=== PATIENT | male | born 1985 | race Caucasian/White ===

== ENCOUNTER 2022-12-21 11:57 | Emergency (ER) | payer MEDICAID ==
[2022-12-21] MEDS ORDERED: Lidocaine 1% 10 ML MDV INJECT ONE (12:41)
[2022-12-21 13:04] LABS: BASOPHILS ABSOLUTE AUTO 0.1 K/mm3 (0.0-0.2); BASOPHILS PERCENT AUTO 1.6 % (0.0-1.0); EOSINOPHILS ABSOLUTE AUTO 0.3 K/mm3 (0.0-0.4); EOSINOPHILS PERCENT AUTO 3.7 % (0.0-6.0); HEMATOCRIT 30.7 % (42.0-52.0); HEMOGLOBIN 11.2 gm/dl (14.0-18.0); IMMATURE GRAN ABSOLUTE AUTO 0.11 K/mm3 (0.00-0.05); IMMATURE GRAN PERCENT AUTO 1.3 % (0.0-0.4); LYMPHOCYTES ABSOLUTE AUTO 0.5 K/mm3 (1.0-4.8); LYMPHOCYTES PERCENT AUTO 5.6 % (24.0-44.0); MEAN CORPUSCULAR HEMOGLOBIN 35.8 pg (28.0-32.0); MEAN CORPUSCULAR HGB CONC 36.5 g/dl (32.0-36.0); MEAN CORPUSCULAR VOLUME 98.1 fl (83.0-99.0); MEAN PLATELET VOLUME 11.1 fl (9.4-12.4); MONOCYTES ABSOLUTE AUTO 1.4 K/mm3 (0.0-0.8); MONOCYTES PERCENT AUTO 17.1 % (0.0-8.0); NEUTROPHILS ABSOLUTE AUTO 5.9 K/mm3 (1.8-7.7); NEUTROPHILS PERCENT AUTO 70.7 % (41.0-71.0); PLATELET COUNT,PLT 112 K/mm3 (150-400); RED BLOOD CELL COUNT 3.13 M/mm3 (4.52-5.90); WHITE BLOOD CELL COUNT,WBC 8.36 K/mm3 (3.9-11.3)
[2022-12-21 13:39] LABS: A/G RATIO 0.5 (1-2); ALBUMIN 1.8 g/dl (3.4-5.0); BUN/CREATININE RATIO 15.5 (14-18); CALCIUM 8.2 mg/dL (8.5-10.1); EST CRCL DRUG DOSING (CG) 109.89 mL/min
[2022-12-21 13:45] LABS: CREATININE 1.1 mg/dL (0.7-1.3); PROTEIN TOTAL,TP 5.5 g/dl (6.4-8.2)
== END 2022-12-21 13:50 | disposition left against medical advice (07) ==
LOC: JD.ED 11:57
DX: K70.31 Alcoholic cirrhosis of liver with ascites (principal)
CPT/HCPCS: 36415; 80053; 82140; 85025; 99283; 99285; J3490

== ENCOUNTER 2022-12-27 19:54 | Inpatient (IN) | payer MEDICAID ==
[2022-12-27] MEDS ORDERED: Sodium Chloride 0.9% 10 ML Syringe FLUSH PRN (20:09)
[2022-12-27] MEDS ORDERED: Furosemide 40 MG/4 ML VIAL IVPUSH ONE (20:27)
[2022-12-27 20:36] LABS: BASOPHILS ABSOLUTE AUTO 0.1 K/mm3 (0.0-0.2); BASOPHILS PERCENT AUTO 1.2 % (0.0-1.0); EOSINOPHILS ABSOLUTE AUTO 0.7 K/mm3 (0.0-0.4); EOSINOPHILS PERCENT AUTO 6.5 % (0.0-6.0); HEMATOCRIT 29.7 % (42.0-52.0); HEMOGLOBIN 10.8 gm/dl (14.0-18.0); IMMATURE GRAN ABSOLUTE AUTO 0.26 K/mm3 (0.00-0.05); IMMATURE GRAN PERCENT AUTO 2.4 % (0.0-0.4); LYMPHOCYTES ABSOLUTE AUTO 0.6 K/mm3 (1.0-4.8); MEAN CORPUSCULAR HEMOGLOBIN 36.5 pg (28.0-32.0); MEAN CORPUSCULAR HGB CONC 36.4 g/dl (32.0-36.0); MEAN CORPUSCULAR VOLUME 100.3 fl (83.0-99.0); MEAN PLATELET VOLUME 10.6 fl (9.4-12.4); MONOCYTES ABSOLUTE AUTO 1.6 K/mm3 (0.0-0.8); NEUTROPHILS ABSOLUTE AUTO 7.8 K/mm3 (1.8-7.7); NEUTROPHILS PERCENT AUTO 70.9 % (41.0-71.0); PLATELET COUNT,PLT 131 K/mm3 (150-400); RED BLOOD CELL COUNT 2.96 M/mm3 (4.52-5.90); WHITE BLOOD CELL COUNT,WBC 11.04 K/mm3 (3.9-11.3)
[2022-12-27 21:08] LABS: A/G RATIO 0.4 (1-2); ALBUMIN 1.7 g/dl (3.4-5.0); ANION GAP 16.3 (5-15); BILIRUBIN TOTAL 17.6 mg/dL (0.2-1.0); C-REACTIVE PROTEIN 2.6 mg/dL (<1.0); CALCIUM 7.9 mg/dL (8.5-10.1); EST CRCL DRUG DOSING (CG) 120.88 mL/min
[2022-12-27 21:09] LABS: LACTIC ACID 2.1 mmol/L (0.4-2.0)
[2022-12-27 21:11] LABS: POTASSIUM,K 3.3 mEq/L (3.5-5.1)
[2022-12-27 21:12] LABS: PROTEIN TOTAL,TP 5.8 g/dl (6.4-8.2)
[2022-12-27 21:19] LABS: SLIDE REVIEW ABNORMAL SMEAR
[2022-12-27 21:23] LABS: APPEARANCE,URINE CLEAR (Clear); BILIRUBIN,URINE 3+ (Negative); COLOR,URINE DARK YELLOW (Yellow); GLUCOSE,URINE NEGATIVE (Negative); KETONES,URINE NEGATIVE (Negative); LEUKOCYTE ESTERASE,URINE NEGATIVE (Negative); NITRITE,URINE NEGATIVE (Negative); OCCULT BLOOD,URINE NEGATIVE (Negative); PROTEIN,URINE NEGATIVE (Negative); UROBILINOGEN,URINE 0.2 (0.2-1.0)
[2022-12-27] MEDS ORDERED: Lactulose Soln 10 GM/15 ML 30 ML UD Cup PO ONE (21:47)
[2022-12-27 21:58] LABS: INR 1.73; PROTHROMBIN TIME 17.8 SECONDS (9.7-12.0)
[2022-12-27] MEDS ORDERED: cefTRIAXone 1 GM in Sodium Chloride 0.9% 100 ML IV ONE (22:05)
[2022-12-27] MEDS ORDERED: Pantoprazole 40 MG in Sodium Chloride 0.9% 100 ML IV ONE (22:06)
[2022-12-27 22:54] LABS: BASE EXCESS ARTERIAL -4.5 (-2-2.0); BICARBONATE,ARTERIAL 19.1 meq/L (22.0-26.0); PCO2 ARTERIAL 31.7 mmHg (35.0-45.0)
[2022-12-27] MEDS ORDERED: Albumin 25% 12.5 GM/50 ML BAG IV ONE (23:56)
[2022-12-28] MEDS ORDERED: QUEtiapine 25 MG Tab PO ONE (00:45)
[2022-12-28 06:19] LABS: INR 1.83; PROTHROMBIN TIME 18.7 SECONDS (9.7-12.0)
[2022-12-28 06:20] LABS: BASOPHILS ABSOLUTE AUTO 0.1 K/mm3 (0.0-0.2); BASOPHILS PERCENT AUTO 1.1 % (0.0-1.0); EOSINOPHILS ABSOLUTE AUTO 0.6 K/mm3 (0.0-0.4); EOSINOPHILS PERCENT AUTO 8.2 % (0.0-6.0); HEMATOCRIT 26.6 % (42.0-52.0); HEMOGLOBIN 9.7 gm/dl (14.0-18.0); IMMATURE GRAN ABSOLUTE AUTO 0.11 K/mm3 (0.00-0.05); IMMATURE GRAN PERCENT AUTO 1.5 % (0.0-0.4); LYMPHOCYTES ABSOLUTE AUTO 0.5 K/mm3 (1.0-4.8); LYMPHOCYTES PERCENT AUTO 7.2 % (24.0-44.0); MEAN CORPUSCULAR HEMOGLOBIN 36.7 pg (28.0-32.0); MEAN CORPUSCULAR HGB CONC 36.5 g/dl (32.0-36.0); MEAN CORPUSCULAR VOLUME 100.8 fl (83.0-99.0); MEAN PLATELET VOLUME 10.8 fl (9.4-12.4); MONOCYTES PERCENT AUTO 13.4 % (0.0-8.0); NEUTROPHILS PERCENT AUTO 68.6 % (41.0-71.0); PLATELET COUNT,PLT 98 K/mm3 (150-400); RED BLOOD CELL COUNT 2.64 M/mm3 (4.52-5.90); WHITE BLOOD CELL COUNT,WBC 7.32 K/mm3 (3.9-11.3)
[2022-12-28 06:34] LABS: A/G RATIO 0.4 (1-2); ALBUMIN 1.6 g/dl (3.4-5.0); ANION GAP 12.3 (5-15); BILIRUBIN DIRECT 12.2 mg/dl (0.0-0.2); BILIRUBIN INDIRECT 4.2; BILIRUBIN TOTAL 16.4 mg/dL (0.2-1.0); CALCIUM 7.7 mg/dL (8.5-10.1); EST CRCL DRUG DOSING (CG) 120.88 mL/min
[2022-12-28 06:45] LABS: POTASSIUM,K 3.3 mEq/L (3.5-5.1)
[2022-12-28 06:46] LABS: PROTEIN TOTAL,TP 5.4 g/dl (6.4-8.2)
[2022-12-28] MEDS ORDERED: Ondansetron 4 MG/2 ML SDV IV PRN (07:28)
[2022-12-28] MEDS ORDERED: oxyCODONE 5 MG Tab PO PRN (07:28)
[2022-12-28 07:39] LABS: SLIDE REVIEW ABNORMAL SMEAR
[2022-12-28] MEDS ORDERED: chlordiazePOXIDE 25 MG Cap PO SCH (09:00)
[2022-12-28] MEDS ORDERED: Potassium Chloride 20 MEQ Tab.ER PO ONE (09:00)
[2022-12-28] MEDS ORDERED: Lactulose Soln 10 GM/15 ML 30 ML UD Cup PO SCH (09:00)
[2022-12-28] MEDS ORDERED: Lidocaine 1% 10 ML MDV ONE (12:40)
[2022-12-28 13:18] LABS: BODY FLUID TYPE OTH
[2022-12-28 13:55] LABS: LACTATE DEHYDROGENASE,LDH 28 U/L (85-227)
[2022-12-28 13:57] LABS: PROTEIN TOTAL,TP < 2.0 g/dl (6.4-8.2)
[2022-12-28 14:10] LABS: SITE,BODY FLUID THORACENTESIS
[2022-12-28 14:11] LABS: APPEARANCE,BODY FLUID CLEAR; COLOR,BODY FLUID YELLOW; VOLUME BODY FLUID 47 ML
[2022-12-28] MEDS: Albumin 25% 12.5 GM in Premix Bag 1 BAG IV SCH ×3 (14:14→16:05)
[2022-12-28 14:15] LABS: WBC BODY FLUID 0.07 k/mm*3 (0.20-0.60)
[2022-12-28 14:16] LABS: RBC,BODY FLUID 0 /uL (0-0)
[2022-12-28 14:20] LABS: POLYMORPHONUCLEAR, BODY FLUID 9.7
[2022-12-28 14:25] LABS: GLUCOSE,BODY FLUID 111 mg/dL
[2022-12-28] MEDS ORDERED: Lactulose Soln 10 GM/15 ML 30 ML UD Cup PO ONE (18:00)
[2022-12-28] MEDS: QUEtiapine 25 MG Tab PO SCH (20:09)
[2022-12-28] MEDS: cefTRIAXone 1 GM in Sodium Chloride 0.9% 100 ML IV SCH (20:09)
[2022-12-28] MEDS ORDERED: QUEtiapine 25 MG Tab PO SCH (21:00)
[2022-12-29 06:36] LABS: BASOPHILS ABSOLUTE AUTO 0.1 K/mm3 (0.0-0.2); BASOPHILS PERCENT AUTO 1.3 % (0.0-1.0); EOSINOPHILS ABSOLUTE AUTO 0.6 K/mm3 (0.0-0.4); EOSINOPHILS PERCENT AUTO 8.7 % (0.0-6.0); HEMOGLOBIN 9.4 gm/dl (14.0-18.0); IMMATURE GRAN ABSOLUTE AUTO 0.13 K/mm3 (0.00-0.05); IMMATURE GRAN PERCENT AUTO 1.9 % (0.0-0.4); LYMPHOCYTES ABSOLUTE AUTO 0.7 K/mm3 (1.0-4.8); LYMPHOCYTES PERCENT AUTO 9.9 % (24.0-44.0); MEAN CORPUSCULAR HEMOGLOBIN 36.7 pg (28.0-32.0); MEAN CORPUSCULAR HGB CONC 36.2 g/dl (32.0-36.0); MEAN CORPUSCULAR VOLUME 101.6 fl (83.0-99.0); MEAN PLATELET VOLUME 10.6 fl (9.4-12.4); MONOCYTES ABSOLUTE AUTO 0.9 K/mm3 (0.0-0.8); MONOCYTES PERCENT AUTO 13.3 % (0.0-8.0); NEUTROPHILS ABSOLUTE AUTO 4.3 K/mm3 (1.8-7.7); NEUTROPHILS PERCENT AUTO 64.9 % (41.0-71.0); PLATELET COUNT,PLT 87 K/mm3 (150-400); RED BLOOD CELL COUNT 2.56 M/mm3 (4.52-5.90); WHITE BLOOD CELL COUNT,WBC 6.68 K/mm3 (3.9-11.3)
[2022-12-29 06:44] LABS: INR 1.89; PROTHROMBIN TIME 19.3 SECONDS (9.7-12.0)
[2022-12-29 07:06] LABS: A/G RATIO 0.5 (1-2); ALBUMIN 1.8 g/dl (3.4-5.0); ANION GAP 12.4 (5-15); BILIRUBIN DIRECT 10.8 mg/dl (0.0-0.2); BILIRUBIN INDIRECT 4.6; BILIRUBIN TOTAL 15.4 mg/dL (0.2-1.0); CALCIUM 8.3 mg/dL (8.5-10.1); EST CRCL DRUG DOSING (CG) 120.88 mL/min; PROTEIN TOTAL,TP 5.4 g/dl (6.4-8.2)
[2022-12-29 07:26] LABS: POTASSIUM,K 3.4 mEq/L (3.5-5.1)
[2022-12-29] MEDS: Sodium Chloride 0.9% 1,000 ML IV SCH ×2 (07:38→17:16)
[2022-12-29 07:53] LABS: SLIDE REVIEW ABNORMAL SMEAR
[2022-12-29] MEDS ORDERED: Potassium Chloride 20 MEQ Tab.ER PO ONE (08:00)
[2022-12-29] MEDS: Pantoprazole 40 MG Vial IVPUSH SCH (08:10)
[2022-12-29] MEDS ORDERED: Lactulose Soln 10 GM/15 ML 30 ML UD Cup PO ONE ×2 (12:00→19:00)
[2022-12-29] MEDS ORDERED: Benzocaine/Cetylpyridinium/Menthol Lozenge MUCMEM PRN (19:31)
[2022-12-29] MEDS: QUEtiapine 25 MG Tab PO SCH (20:09)
[2022-12-29] MEDS: cefTRIAXone 1 GM in Sodium Chloride 0.9% 100 ML IV SCH (20:09)
[2022-12-29] MEDS ORDERED: Magnesium Oxide 400 MG Tab PO ONE (20:12)
[2022-12-30 05:35] LABS: A/G RATIO 0.5 (1-2); ALBUMIN 1.7 g/dl (3.4-5.0); ANION GAP 14.4 (5-15); BILIRUBIN DIRECT 10.8 mg/dl (0.0-0.2); BILIRUBIN INDIRECT 3.6; BILIRUBIN TOTAL 14.4 mg/dL (0.2-1.0); CALCIUM 8.2 mg/dL (8.5-10.1); EST CRCL DRUG DOSING (CG) 120.88 mL/min; MAGNESIUM 1.6 mg/dL (1.8-2.4); POTASSIUM,K 3.4 mEq/L (3.5-5.1)
[2022-12-30 05:46] LABS: HEMATOCRIT 27.3 % (42.0-52.0); HEMOGLOBIN 9.7 gm/dl (14.0-18.0); MEAN CORPUSCULAR HEMOGLOBIN 36.2 pg (28.0-32.0); MEAN CORPUSCULAR HGB CONC 35.5 g/dl (32.0-36.0); MEAN CORPUSCULAR VOLUME 101.9 fl (83.0-99.0); MEAN PLATELET VOLUME 10.9 fl (9.4-12.4); PLATELET COUNT,PLT 91 K/mm3 (150-400); RED BLOOD CELL COUNT 2.68 M/mm3 (4.52-5.90); WHITE BLOOD CELL COUNT,WBC 6.46 K/mm3 (3.9-11.3)
[2022-12-30 05:56] LABS: INR 1.89; PROTHROMBIN TIME 19.3 SECONDS (9.7-12.0)
[2022-12-30 05:58] LABS: PROTEIN TOTAL,TP 5.4 g/dl (6.4-8.2)
[2022-12-30] MEDS ORDERED: Magnesium Sulfate/Water 2 GM/50 ML BAG IV SCH (07:30)
[2022-12-30] MEDS ORDERED: Lactulose Soln 10 GM/15 ML 30 ML UD Cup PO SCH (08:00)
[2022-12-30] MEDS ORDERED: Magnesium Sulfate/Water 2 GM/50 ML BAG IV ONE (08:06)
[2022-12-30] MEDS: Furosemide 20 MG Tab PO SCH ×2 (08:11→14:24)
[2022-12-30] MEDS: Lactulose Soln 10 GM/15 ML 30 ML UD Cup PO SCH ×4 (08:12→21:31)
[2022-12-30] MEDS ORDERED: Thiamine 100 MG in Sodium Chloride 0.9% 100 ML IV SCH (09:00)
[2022-12-30] MEDS: Folic Acid 1 MG Tab PO SCH (10:20)
[2022-12-30] MEDS: Potassium Chloride 20 MEQ Tab.ER PO SCH ×2 (10:20→21:32)
[2022-12-30] MEDS: Pantoprazole 40 MG Vial IVPUSH SCH (10:20)
[2022-12-30] MEDS: Thiamine 200 MG/2 ML MDV IVPUSH SCH (10:20)
[2022-12-30] MEDS: Heparin Sodium 5,000 Units/ML Vial SUBCUT SCH ×2 (10:30→21:33)
[2022-12-30] MEDS: QUEtiapine 25 MG Tab PO SCH (21:33)
[2022-12-30] MEDS: cefTRIAXone 1 GM in Sodium Chloride 0.9% 100 ML IV SCH (21:36)
[2022-12-31] MEDS: Furosemide 20 MG Tab PO SCH ×2 (05:09→14:22)
[2022-12-31 07:23] LABS: HEMATOCRIT 26.7 % (42.0-52.0); HEMOGLOBIN 9.5 gm/dl (14.0-18.0); MEAN CORPUSCULAR HEMOGLOBIN 36.5 pg (28.0-32.0); MEAN CORPUSCULAR HGB CONC 35.6 g/dl (32.0-36.0); MEAN CORPUSCULAR VOLUME 102.7 fl (83.0-99.0); PLATELET COUNT,PLT 94 K/mm3 (150-400); WHITE BLOOD CELL COUNT,WBC 7.48 K/mm3 (3.9-11.3)
[2022-12-31 07:41] LABS: INR 1.82; PROTHROMBIN TIME 18.6 SECONDS (9.7-12.0)
[2022-12-31 07:56] LABS: A/G RATIO 0.5 (1-2); ALBUMIN 1.7 g/dl (3.4-5.0); ANION GAP 13.7 (5-15); BILIRUBIN TOTAL 13.7 mg/dL (0.2-1.0); BUN/CREATININE RATIO 11.8 (14-18); CALCIUM 7.9 mg/dL (8.5-10.1); EST CRCL DRUG DOSING (CG) 109.89 mL/min; MAGNESIUM 1.6 mg/dL (1.8-2.4)
[2022-12-31 08:05] LABS: POTASSIUM,K 3.7 mEq/L (3.5-5.1); PROTEIN TOTAL,TP 5.4 g/dl (6.4-8.2)
[2022-12-31 08:06] LABS: CREATININE 1.1 mg/dL (0.7-1.3)
[2022-12-31 08:22] LABS: BILIRUBIN INDIRECT 3.4 mg/dL (0.1-1.0)
[2022-12-31 08:23] LABS: BILIRUBIN DIRECT 10.3 mg/dl (0.0-0.2)
[2022-12-31] MEDS ORDERED: Magnesium Sulfate/Water 2 GM/50 ML BAG IV ONE (08:29)
[2022-12-31] MEDS: Lactulose Soln 10 GM/15 ML 30 ML UD Cup PO SCH ×3 (08:42→21:44)
[2022-12-31] MEDS: Folic Acid 1 MG Tab PO SCH (08:43)
[2022-12-31] MEDS: Thiamine 200 MG/2 ML MDV IVPUSH SCH (08:43)
[2022-12-31] MEDS: Potassium Chloride 20 MEQ Tab.ER PO SCH ×2 (08:43→21:43)
[2022-12-31] MEDS: Pantoprazole 40 MG Vial IVPUSH SCH (08:45)
[2022-12-31] MEDS: Heparin Sodium 5,000 Units/ML Vial SUBCUT SCH ×2 (09:54→21:43)
[2022-12-31] MEDS: QUEtiapine 25 MG Tab PO SCH (21:43)
[2022-12-31] MEDS: cefTRIAXone 1 GM in Sodium Chloride 0.9% 100 ML IV SCH (21:44)
[2023-01-01] MEDS: Furosemide 20 MG Tab PO SCH ×2 (05:56→14:58)
[2023-01-01 06:02] LABS: HEMATOCRIT 26.1 % (42.0-52.0); HEMOGLOBIN 9.2 gm/dl (14.0-18.0); MEAN CORPUSCULAR HEMOGLOBIN 36.1 pg (28.0-32.0); MEAN CORPUSCULAR HGB CONC 35.2 g/dl (32.0-36.0); MEAN CORPUSCULAR VOLUME 102.4 fl (83.0-99.0); MEAN PLATELET VOLUME 10.7 fl (9.4-12.4); PLATELET COUNT,PLT 93 K/mm3 (150-400); RED BLOOD CELL COUNT 2.55 M/mm3 (4.52-5.90)
[2023-01-01] MEDS: Thiamine 200 MG/2 ML MDV IVPUSH SCH (08:16)
[2023-01-01] MEDS: Lactulose Soln 10 GM/15 ML 30 ML UD Cup PO SCH ×2 (08:16→14:58)
[2023-01-01] MEDS: Folic Acid 1 MG Tab PO SCH (08:17)
[2023-01-01] MEDS: Pantoprazole 40 MG Vial IVPUSH SCH (08:17)
[2023-01-01] MEDS: Potassium Chloride 20 MEQ Tab.ER PO SCH (08:17)
== END 2023-01-01 17:30 | disposition home or self-care (01) | DRG 433 ==
LOC: JD.ED 19:54 → JD.ICU 22:39
PROVIDERS: ADMIT Hospitalist; ATTEND Hospitalist
PROC: 4A033R1 Measurement of Arterial Saturation, Peripheral, Percutaneous Approach (ICD-10-PCS; 2022-12-27)
PROC: 0W9G3ZZ Drainage of Peritoneal Cavity, Percutaneous Approach (ICD-10-PCS; principal; 2022-12-28)
DX: K70.31 Alcoholic cirrhosis of liver with ascites (principal); E87.1 Hypo-osmolality and hyponatremia; E87.20 Acidosis, unspecified; F10.980 Alcohol use, unspecified with alcohol-induced anxiety disorder; K76.82 Hepatic encephalopathy; E87.79 Other fluid overload; D69.6 Thrombocytopenia, unspecified; E87.6 Hypokalemia; I49.3 Ventricular premature depolarization; E83.42 Hypomagnesemia; Z79.2 Long term (current) use of antibiotics; Z79.899 Other long term (current) drug therapy
CPT/HCPCS: 36415; 36600; 71045; 71045-26; 76700; 76700-26; 80048; 80053; 80076; 81003; 82140; 82803; 82945; 83605; 83615; 83735; 83880; 84155; 85025; 85027; 85610; 86140; 87040; 87070; 87075; 87205; 89050; 93005; 93010; 96374; 97161-GP; 99285; 99285-25; A9270-GY; C9113; J0696; J1644; J1940; J3411; J3475; J3490; J7030; P9047